=== PATIENT | male | born 1985 | race Caucasian/White ===

== ENCOUNTER 2024-12-24 18:40 | Emergency (ER) | payer OTHER ==
[~2024-12-24] VITALS: Ht 172.7 cm; Wt 72.6 kg
[~2024-12-24 18:40] MED LIST: ACYC200 PO; ALBU90OI INH; ARTTEAOPSB OP; AZIT250 PO; Augmentin 875-1 EACH PO; HYDACE5 PO; IBUP600 PO; NAPR550 PO; Naprosyn500 MG PO; OPTLUBOPO LEFTEYE; OPTLUBOPOA OD; OXYACE5T PO; PENVK500 PO; PRED10 PO; Prednisone20 MG PO; RXOXYACE PO; RXTRAM50 PO; SULTRIDS PO; SULTRISS PO; TRAM50 PO; Zovirax800 MG PO; [UNRECOGNIZED DRUG - REMARK]
[2024-12-24 19:41] LABS: Influenza A, PCR NEGATIVE (NEGATIVE); Influenza B, PCR NEGATIVE (NEGATIVE); Resp Syncytial Virus, PCR NEGATIVE (NEGATIVE); SARS-Cov-2 (COVID-19) PCR, MMC NEGATIVE (NEGATIVE)
[2024-12-24] MEDS ORDERED: Amoxicillin/Clavulanate K 875 MG Tab PO ONE (19:55)
[2024-12-24] MEDS ORDERED: AMOCLA875 PO (19:57)
[2024-12-24 20:00] VITALS: BP 119/74
== END 2024-12-24 20:06 | disposition home or self-care (01) ==
LOC: ER 18:40
PROVIDERS: Physician Assistant
DX: J01.90 Acute sinusitis, unspecified (principal); J06.9 Acute upper respiratory infection, unspecified; F17.210 Nicotine dependence, cigarettes, uncomplicated
CPT/HCPCS: 0241U; 99283; A9270